=== PATIENT | female | born 1965 | race Caucasian/White ===

== ENCOUNTER 2017-11-12 12:54 | Inpatient (IN) | payer OTHER ==
[~2017-11-12 12:54] MED LIST: ROCURONIUM 50 MG INJ
[2017-11-12 14:22] LABS: ADD MAN DIFF? NO
[2017-11-12 14:27] LABS: BASOPHIL # 0.1 10^3/ul (0.0-0.1); EOSINOPHILS # 0.1 10^3/ul (0.0-0.5); EOSINOPHILS % 1.7 % (0.0-7.0); HEMOGLOBIN 12.1 g/dl (12.0-16.0); LYMPHOCYTES # 3.3 10^3/ul (0.8-2.9); LYMPHOCYTES % 39.9 % (15.0-51.0); MEAN CORPUSCULAR HEMOGLOBIN 29.9 pg (29.0-33.0); MEAN CORPUSCULAR HGB CONC 34.6 g/dl (32.0-37.0); MEAN CORPUSCULAR VOLUME 86.4 fl (82.0-101.0); MEAN PLATELET VOLUME 11.3 fl (7.4-10.4); MONOCYTE # 0.8 10^3/ul (0.3-0.9); MONOCYTES % 9.8 % (0.0-11.0); NEUTROPHIL # 3.9 10^3/ul (1.6-7.5); NEUTROPHILS % 47.4 % (39.0-77.0); PLATELET COUNT 261 10^3/UL (140-415); RED BLOOD COUNT 4.05 10^6/ul (4.20-5.40); RED CELL DISTRIBUTION WIDTH 12.2 % (11.5-14.5)
[2017-11-12 14:27] LABS: WHITE BLOOD COUNT 8.3 10^3/ul (4.8-10.8)
[2017-11-12 14:38] LABS: ADD UMIC YES; UR ASCORBIC ACID NEGATIVE (NEGATIVE); UR BILIRUBIN (Dip) NEGATIVE (NEGATIVE); UR BLOOD (Dip) 2+ mg/dL (NEGATIVE); UR CLARITY CLEAR (CLEAR); UR COLOR YELLOW (YELLOW); UR GLUCOSE (Dip) NEGATIVE (NEGATIVE); UR KETONES (Dip) TRACE mg/dL (NEGATIVE); UR LEUKOCYTE ESTERASE (Dip) NEGATIVE Leu/ul (NEGATIVE); UR MUCUS FEW /HPF (NONE SEEN); UR NITRITE (Dip) NEGATIVE (NEGATIVE); UR RBC 7 /HPF (0-5); UR SQUAMOUS EPITHELIAL CELL FEW /HPF (FEW); UR TOTAL PROTEIN (Dip) 1+ mg/dl (NEGATIVE); UR UROBILINOGEN (Dip) NEGATIVE (NEGATIVE); UR WBC 1 /HPF (0-5)
[2017-11-12 14:45] LABS: ALANINE AMINOTRANSFERASE 51 IU/L (13-69); ALBUMIN 3.9 g/dl (3.3-4.9); ALBUMIN/GLOBULIN RATIO 1.25; ALKALINE PHOSPHATASE 87 IU/L (42-121); ANION GAP 13 (8-16); ASPARTATE AMINO TRANSFERASE 41 IU/L (15-46); BILIRUBIN,INDIRECT 0.7 mg/dl (0-1.1); BILIRUBIN,TOTAL 0.7 mg/dl (0.2-1.3); CARBON DIOXIDE 30 mmol/L (21-31); CHLORIDE 107 mmol/L (97-110); GLUCOSE 90 mg/dl (70-220)
[2017-11-12 14:52] LABS: BLOOD UREA NITROGEN 14 mg/dl (7-20); CALCIUM 9.2 mg/dl (8.4-10.2); CREATININE 0.73 mg/dl (0.44-1.00); POTASSIUM 3.7 mmol/L (3.5-5.1); SODIUM 146 mmol/L (135-144)
[2017-11-12] MEDS ORDERED: ONDANSETRON 4 MG INJ IV ×2 (15:00→16:30)
[2017-11-12 15:26] LABS: INR 1.01; PROTIME 13.4 Sec (11.9-14.9)
[2017-11-12 15:27] LABS: PARTIAL THROMBOPLASTIN TIME 27.9 Sec (25.0-35.0)
[2017-11-12] MEDS ORDERED: FENTAnyl 50 MCG/ML VIAL (15:38)
[2017-11-12] MEDS: LIDOCAINE 1%/EPI 30 ML INJ (16:15)
[2017-11-12] MEDS ORDERED: MEPERIDINE 25 MG INJ IV (16:30)
[2017-11-12] MEDS ORDERED: FENTAnyl 50 MCG/ML VIAL IV ×3 (16:30)
[2017-11-12] MEDS ORDERED: DIPHENHYDRAMINE 50 MG INJ IV (16:30)
[2017-11-12] MEDS: GELATIN SIZE 100 SPONGE (16:30)
[2017-11-12] MEDS ORDERED: HYDROmorphONE (0.2 MG/ML) 10ML SYG IV (16:30)
[2017-11-12] MEDS ORDERED: METOCLOPRAMIDE 10 MG INJ IV (16:30)
[2017-11-12] MEDS: THROMBIN 5000 UNIT VIAL (16:31)
[2017-11-12] MEDS: POLYMYXIN/BACITRACIN 1L IRRIG (16:31)
[2017-11-12] MEDS ORDERED: THROMBIN 5000 UNIT VIAL (17:08)
[2017-11-12] MEDS ORDERED: GELATIN SIZE 100 SPONGE (17:08)
[2017-11-12] MEDS ORDERED: CEFAZOLIN 1 GM INJ (18:12)
[2017-11-12] MEDS ORDERED: SUCCINYLCHOLINE CHLORIDE 100 MG/5 ML SYG IV (18:12)
[2017-11-12] MEDS ORDERED: LIDOCAINE 100 MG SYRINGE (18:12)
[2017-11-12] MEDS ORDERED: ROCURONIUM 50 MG INJ (18:12)
[2017-11-12] MEDS ORDERED: SUGAMMADEX SODIUM 200 MG/2 ML VIAL IV (18:12)
[2017-11-12] MEDS ORDERED: PROPOFOL 20 ML (18:12)
[2017-11-12] MEDS: HYDROmorphONE (0.2 MG/ML) 10ML SYG IV ×4 (18:42→20:36)
[2017-11-12 19:06] LABS: ADD UMIC YES; UR ASCORBIC ACID NEGATIVE (NEGATIVE); UR BACTERIA FEW /HPF (NONE SEEN); UR BILIRUBIN (Dip) NEGATIVE (NEGATIVE); UR BLOOD (Dip) 1+ mg/dL (NEGATIVE); UR CLARITY CLEAR (CLEAR); UR COLOR STRAW (YELLOW); UR GLUCOSE (Dip) NEGATIVE (NEGATIVE); UR KETONES (Dip) NEGATIVE (NEGATIVE); UR LEUKOCYTE ESTERASE (Dip) NEGATIVE Leu/ul (NEGATIVE); UR NITRITE (Dip) NEGATIVE (NEGATIVE); UR RBC 3 /HPF (0-5); UR TOTAL PROTEIN (Dip) NEGATIVE (NEGATIVE); UR UROBILINOGEN (Dip) NEGATIVE (NEGATIVE); UR WBC 2 /HPF (0-5)
[2017-11-12] MEDS: morphine 2 MG INJ IV (21:30)
[2017-11-12] MEDS: CEFAZOLIN 1 GM/50 ML (PMX) 50 ML IVPB (21:57)
[2017-11-12] MEDS: DEXTROSE 5%-LR 1,000 ML IV ×2 (21:58→22:32)
[2017-11-12] MEDS: HYDROCODONE/APAP (10/325) TAB PO (23:34)
[2017-11-13] MEDS: morphine 2 MG INJ IV ×4 (03:22→21:13)
[2017-11-13] MEDS: CEFAZOLIN 1 GM/50 ML (PMX) 50 ML IVPB ×3 (05:24→21:09)
[2017-11-13] MEDS: HYDROCODONE/APAP (10/325) TAB PO ×2 (05:37→10:11)
[2017-11-13] MEDS: DEXTROSE 5%-LR 1,000 ML IV ×2 (08:46→15:49)
[2017-11-13] MEDS: CYCLOBENZAPRINE 10 MG TAB PO (08:53)
[2017-11-13] MEDS: PANTOPRAZOLE (EC) 40 MG TAB PO (10:11)
[2017-11-13] MEDS: ACETAMINOPHEN 325 MG TAB PO (18:28)
[2017-11-14 00:17] LABS: ADD UMIC YES; UR ASCORBIC ACID NEGATIVE (NEGATIVE); UR BILIRUBIN (Dip) NEGATIVE (NEGATIVE); UR BLOOD (Dip) 2+ mg/dL (NEGATIVE); UR CLARITY CLEAR (CLEAR); UR COLOR STRAW (YELLOW); UR GLUCOSE (Dip) NEGATIVE (NEGATIVE); UR KETONES (Dip) NEGATIVE (NEGATIVE); UR LEUKOCYTE ESTERASE (Dip) NEGATIVE Leu/ul (NEGATIVE); UR NITRITE (Dip) NEGATIVE (NEGATIVE); UR RBC 1 /HPF (0-5); UR SPECIFIC GRAVITY (Dip) 1.005 (1.003-1.030); UR TOTAL PROTEIN (Dip) NEGATIVE (NEGATIVE); UR UROBILINOGEN (Dip) NEGATIVE (NEGATIVE); UR WBC 0 /HPF (0-5)
[2017-11-14] MEDS: morphine 2 MG INJ IV ×2 (01:49→07:23)
[2017-11-14 04:53] LABS: ADD MAN DIFF? NO
[2017-11-14 04:59] LABS: ABNORMAL IP MESSAGE 1; BASOPHIL # 0.1 10^3/ul (0.0-0.1); BASOPHILS % 0.4 % (0.0-2.0); EOSINOPHILS % 0.1 % (0.0-7.0); HEMATOCRIT 33.5 % (37.0-47.0); HEMOGLOBIN 11.1 g/dl (12.0-16.0); LYMPHOCYTES # 2.6 10^3/ul (0.8-2.9); LYMPHOCYTES % 17.2 % (15.0-51.0); MEAN CORPUSCULAR HEMOGLOBIN 29.8 pg (29.0-33.0); MEAN CORPUSCULAR HGB CONC 33.1 g/dl (32.0-37.0); MEAN CORPUSCULAR VOLUME 89.8 fl (82.0-101.0); MEAN PLATELET VOLUME 11.4 fl (7.4-10.4); MONOCYTE # 1.7 10^3/ul (0.3-0.9); MONOCYTES % 11.5 % (0.0-11.0); NEUTROPHIL # 10.6 10^3/ul (1.6-7.5); NEUTROPHILS % 70.3 % (39.0-77.0); PLATELET COUNT 201 10^3/UL (140-415); RED BLOOD COUNT 3.73 10^6/ul (4.20-5.40)
[2017-11-14 04:59] LABS: WHITE BLOOD COUNT 15.1 10^3/ul (4.8-10.8)
[2017-11-14 05:19] LABS: ANION GAP 6 (8-16); BLOOD UREA NITROGEN 7 mg/dl (7-20); CALCIUM 8.3 mg/dl (8.4-10.2); CARBON DIOXIDE 34 mmol/L (21-31); CHLORIDE 103 mmol/L (97-110); CREATININE 0.77 mg/dl (0.44-1.00); GLUCOSE 119 mg/dl (70-220); POTASSIUM 3.7 mmol/L (3.5-5.1); SODIUM 139 mmol/L (135-144)
[2017-11-14 05:29] LABS: POSITIVE DIFF @See below
[2017-11-14] MEDS: PANTOPRAZOLE (EC) 40 MG TAB PO (05:29)
[2017-11-14] MEDS: ACETAMINOPHEN 325 MG TAB PO ×2 (05:29→20:00)
[2017-11-14] MEDS: HYDROmorphONE 0.5 MG/0.5 ML SYG IV ×4 (10:27→21:48)
[2017-11-14] MEDS: CYCLOBENZAPRINE 10 MG TAB PO ×2 (11:33→17:51)
[2017-11-14] MEDS: HYDROCODONE/APAP (10/325) TAB PO (12:40)
[2017-11-15] MEDS: CEFTRIAXONE 1 GM/50 ML (PMX) 50 ML IVPB ×2 (00:25→22:49)
[2017-11-15] MEDS: HYDROCODONE/APAP (10/325) TAB PO ×6 (00:28→22:35)
[2017-11-15 01:27] LABS: LACTIC ACID 0.9 mmol/L (0.5-2.0)
[2017-11-15] MEDS: VANCOMYCIN 1.25 GM in SOD CHLORIDE 0.9% 250 ML IVPB (01:30)
[2017-11-15 02:32] LABS: ADD UMIC YES; UR ASCORBIC ACID NEGATIVE (NEGATIVE); UR BACTERIA FEW /HPF (NONE SEEN); UR BILIRUBIN (Dip) NEGATIVE (NEGATIVE); UR BLOOD (Dip) 3+ mg/dL (NEGATIVE); UR CLARITY CLEAR (CLEAR); UR COLOR YELLOW (YELLOW); UR GLUCOSE (Dip) NEGATIVE (NEGATIVE); UR KETONES (Dip) NEGATIVE (NEGATIVE); UR LEUKOCYTE ESTERASE (Dip) NEGATIVE Leu/ul (NEGATIVE); UR MUCUS MODERATE /HPF (NONE SEEN); UR NITRITE (Dip) NEGATIVE (NEGATIVE); UR RBC 16 /HPF (0-5); UR SPECIFIC GRAVITY (Dip) 1.017 (1.003-1.030); UR TOTAL PROTEIN (Dip) NEGATIVE (NEGATIVE); UR UROBILINOGEN (Dip) NEGATIVE (NEGATIVE); UR WBC 5 /HPF (0-5)
[2017-11-15] MEDS: HYDROmorphONE 0.5 MG/0.5 ML SYG IV ×2 (03:13→08:16)
[2017-11-15 05:23] LABS: WHITE BLOOD COUNT 13.4 10^3/ul (4.8-10.8)
[2017-11-15 05:23] LABS: ADD MAN DIFF? NO; BASOPHIL # 0.1 10^3/ul (0.0-0.1); BASOPHILS % 0.6 % (0.0-2.0); EOSINOPHILS # 0.1 10^3/ul (0.0-0.5); HEMATOCRIT 33.8 % (37.0-47.0); HEMOGLOBIN 11.1 g/dl (12.0-16.0); LYMPHOCYTES % 22.6 % (15.0-51.0); MEAN CORPUSCULAR HEMOGLOBIN 29.8 pg (29.0-33.0); MEAN CORPUSCULAR HGB CONC 32.8 g/dl (32.0-37.0); MEAN CORPUSCULAR VOLUME 90.9 fl (82.0-101.0); MEAN PLATELET VOLUME 11.5 fl (7.4-10.4); MONOCYTE # 1.5 10^3/ul (0.3-0.9); MONOCYTES % 11.2 % (0.0-11.0); NEUTROPHIL # 8.5 10^3/ul (1.6-7.5); NEUTROPHILS % 63.7 % (39.0-77.0); PLATELET COUNT 218 10^3/UL (140-415); RED BLOOD COUNT 3.72 10^6/ul (4.20-5.40)
[2017-11-15] MEDS: ACETAMINOPHEN 325 MG TAB PO (05:31)
[2017-11-15] MEDS: PANTOPRAZOLE (EC) 40 MG TAB PO (05:31)
[2017-11-15 05:37] LABS: LACTIC ACID 0.9 mmol/L (0.5-2.0)
[2017-11-15 05:45] LABS: ANION GAP 11 (8-16); BLOOD UREA NITROGEN 8 mg/dl (7-20); CALCIUM 8.3 mg/dl (8.4-10.2); CARBON DIOXIDE 32 mmol/L (21-31); CHLORIDE 98 mmol/L (97-110); CREATININE 0.75 mg/dl (0.44-1.00); GLUCOSE 118 mg/dl (70-220); POTASSIUM 3.8 mmol/L (3.5-5.1); SODIUM 137 mmol/L (135-144)
[2017-11-15] MEDS: HYDROmorphONE 2 MG/ML SYG IV ×3 (11:40→21:00)
[2017-11-15] MEDS: CYCLOBENZAPRINE 10 MG TAB PO (14:32)
[2017-11-15] MEDS ORDERED: CEFTRIAXONE 1 GM/50 ML (PMX) 50 ML IVPB (21:00)
[2017-11-15] MEDS ORDERED: VANCOMYCIN IV PER PHARMACY XX (21:00)
[2017-11-15 22:18] LABS: ADD UMIC YES; UR ASCORBIC ACID 20 mg/dL (NEGATIVE); UR BILIRUBIN (Dip) NEGATIVE (NEGATIVE); UR BLOOD (Dip) 2+ mg/dL (NEGATIVE); UR CLARITY CLEAR (CLEAR); UR COLOR YELLOW (YELLOW); UR GLUCOSE (Dip) NEGATIVE (NEGATIVE); UR KETONES (Dip) NEGATIVE (NEGATIVE); UR LEUKOCYTE ESTERASE (Dip) NEGATIVE Leu/ul (NEGATIVE); UR MUCUS FEW /HPF (NONE SEEN); UR NITRITE (Dip) NEGATIVE (NEGATIVE); UR RBC 8 /HPF (0-5); UR SPECIFIC GRAVITY (Dip) 1.017 (1.003-1.030); UR TOTAL PROTEIN (Dip) NEGATIVE (NEGATIVE); UR UROBILINOGEN (Dip) NEGATIVE (NEGATIVE); UR WBC 3 /HPF (0-5)
[2017-11-15] MEDS: VANCOMYCIN 1.75 GM in SOD CHLORIDE 0.9% 500 ML IVPB (22:49)
[2017-11-16] MEDS: HYDROmorphONE 2 MG/ML SYG IV ×4 (02:22→19:45)
[2017-11-16 05:46] LABS: ADD MAN DIFF? NO
[2017-11-16 06:04] LABS: BASOPHIL # 0.1 10^3/ul (0.0-0.1); BASOPHILS % 0.4 % (0.0-2.0); EOSINOPHILS # 0.2 10^3/ul (0.0-0.5); EOSINOPHILS % 1.5 % (0.0-7.0); HEMOGLOBIN 10.8 g/dl (12.0-16.0); LYMPHOCYTES # 2.6 10^3/ul (0.8-2.9); MEAN CORPUSCULAR HEMOGLOBIN 29.6 pg (29.0-33.0); MEAN CORPUSCULAR HGB CONC 32.7 g/dl (32.0-37.0); MEAN CORPUSCULAR VOLUME 90.4 fl (82.0-101.0); MEAN PLATELET VOLUME 11.6 fl (7.4-10.4); MONOCYTES % 8.5 % (0.0-11.0); NEUTROPHIL # 7.4 10^3/ul (1.6-7.5); NEUTROPHILS % 65.8 % (39.0-77.0); PLATELET COUNT 280 10^3/UL (140-415); RED BLOOD COUNT 3.65 10^6/ul (4.20-5.40); RED CELL DISTRIBUTION WIDTH 11.8 % (11.5-14.5)
[2017-11-16 06:04] LABS: WHITE BLOOD COUNT 11.2 10^3/ul (4.8-10.8)
[2017-11-16] MEDS: HYDROCODONE/APAP (10/325) TAB PO ×4 (06:19→22:42)
[2017-11-16] MEDS: PANTOPRAZOLE (EC) 40 MG TAB PO (06:19)
[2017-11-16 06:20] LABS: LACTIC ACID 0.9 mmol/L (0.5-2.0)
[2017-11-16 06:44] LABS: ANION GAP 13 (8-16); BLOOD UREA NITROGEN 7 mg/dl (7-20); CALCIUM 8.1 mg/dl (8.4-10.2); CARBON DIOXIDE 34 mmol/L (21-31); CHLORIDE 93 mmol/L (97-110); CREATININE 0.79 mg/dl (0.44-1.00); GLUCOSE 138 mg/dl (70-220); POTASSIUM 3.8 mmol/L (3.5-5.1); SODIUM 136 mmol/L (135-144)
[2017-11-16] MEDS: CYCLOBENZAPRINE 10 MG TAB PO (08:07)
[2017-11-16] MEDS: VANCOMYCIN 1 GM 250 ML IVPB ×2 (09:29→23:58)
[2017-11-16] MEDS: CEFTRIAXONE 1 GM/50 ML (PMX) 50 ML IVPB (23:57)
[2017-11-17 05:19] LABS: ADD MAN DIFF? NO
[2017-11-17 05:21] LABS: BASOPHILS % 0.4 % (0.0-2.0); EOSINOPHILS # 0.3 10^3/ul (0.0-0.5); EOSINOPHILS % 3.1 % (0.0-7.0); HEMATOCRIT 28.9 % (37.0-47.0); HEMOGLOBIN 9.7 g/dl (12.0-16.0); LYMPHOCYTES # 2.4 10^3/ul (0.8-2.9); LYMPHOCYTES % 24.1 % (15.0-51.0); MEAN CORPUSCULAR HEMOGLOBIN 29.8 pg (29.0-33.0); MEAN CORPUSCULAR HGB CONC 33.6 g/dl (32.0-37.0); MEAN CORPUSCULAR VOLUME 88.9 fl (82.0-101.0); MEAN PLATELET VOLUME 11.2 fl (7.4-10.4); MONOCYTE # 1.1 10^3/ul (0.3-0.9); MONOCYTES % 11.1 % (0.0-11.0); NEUTROPHILS % 60.6 % (39.0-77.0); PLATELET COUNT 264 10^3/UL (140-415); RED BLOOD COUNT 3.25 10^6/ul (4.20-5.40); RED CELL DISTRIBUTION WIDTH 11.9 % (11.5-14.5)
[2017-11-17 05:54] LABS: ANION GAP 8 (8-16); BLOOD UREA NITROGEN 6 mg/dl (7-20); CALCIUM 8.4 mg/dl (8.4-10.2); CARBON DIOXIDE 36 mmol/L (21-31); CHLORIDE 97 mmol/L (97-110); CREATININE 0.62 mg/dl (0.44-1.00); GLUCOSE 124 mg/dl (70-220); POTASSIUM 3.4 mmol/L (3.5-5.1); SODIUM 138 mmol/L (135-144)
[2017-11-17] MEDS: PANTOPRAZOLE (EC) 40 MG TAB PO (06:02)
[2017-11-17] MEDS: HYDROmorphONE 2 MG/ML SYG IV ×3 (06:02→22:03)
[2017-11-17] MEDS: HYDROCODONE/APAP (10/325) TAB PO ×3 (07:53→20:01)
[2017-11-17] MEDS: CYCLOBENZAPRINE 10 MG TAB PO (11:22)
[2017-11-17 13:39] LABS: VANCOMYCIN,TROUGH 5.7 ug/ml (10.0-20.0)
[2017-11-17] MEDS: VANCOMYCIN 1 GM 250 ML IVPB (14:31)
[2017-11-17] MEDS: POTASSIUM CHLORIDE 20 MEQ POWDER FOR ORAL SOLN PO (20:01)
[2017-11-17] MEDS: VANCOMYCIN 1.25 GM in SOD CHLORIDE 0.9% 250 ML IVPB (22:03)
[2017-11-18] MEDS: HYDROCODONE/APAP (10/325) TAB PO ×4 (04:04→21:51)
[2017-11-18 05:16] LABS: ADD MAN DIFF? NO
[2017-11-18 05:24] LABS: WHITE BLOOD COUNT 9.1 10^3/ul (4.8-10.8)
[2017-11-18 05:24] LABS: BASOPHILS % 0.4 % (0.0-2.0); EOSINOPHILS # 0.4 10^3/ul (0.0-0.5); EOSINOPHILS % 3.9 % (0.0-7.0); HEMATOCRIT 30.1 % (37.0-47.0); HEMOGLOBIN 10.1 g/dl (12.0-16.0); LYMPHOCYTES # 1.9 10^3/ul (0.8-2.9); LYMPHOCYTES % 21.2 % (15.0-51.0); MEAN CORPUSCULAR HEMOGLOBIN 29.6 pg (29.0-33.0); MEAN CORPUSCULAR HGB CONC 33.6 g/dl (32.0-37.0); MEAN CORPUSCULAR VOLUME 88.3 fl (82.0-101.0); MEAN PLATELET VOLUME 11.2 fl (7.4-10.4); MONOCYTES % 10.5 % (0.0-11.0); NEUTROPHIL # 5.7 10^3/ul (1.6-7.5); PLATELET COUNT 291 10^3/UL (140-415); RED BLOOD COUNT 3.41 10^6/ul (4.20-5.40); RED CELL DISTRIBUTION WIDTH 11.8 % (11.5-14.5)
[2017-11-18] MEDS: HYDROmorphONE 2 MG/ML SYG IV ×5 (05:43→23:49)
[2017-11-18] MEDS: VANCOMYCIN 1.25 GM in SOD CHLORIDE 0.9% 250 ML IVPB ×3 (05:43→22:22)
[2017-11-18] MEDS: PANTOPRAZOLE (EC) 40 MG TAB PO (05:43)
[2017-11-18 05:54] LABS: ANION GAP 9 (8-16); BLOOD UREA NITROGEN 6 mg/dl (7-20); CALCIUM 8.6 mg/dl (8.4-10.2); CARBON DIOXIDE 35 mmol/L (21-31); CHLORIDE 97 mmol/L (97-110); GLUCOSE 112 mg/dl (70-220); POTASSIUM 3.8 mmol/L (3.5-5.1); SODIUM 137 mmol/L (135-144)
[2017-11-18] MEDS: CYCLOBENZAPRINE 10 MG TAB PO (14:03)
[2017-11-18 22:08] LABS: VANCOMYCIN,TROUGH 13.5 ug/ml (10.0-20.0)
[2017-11-19] MEDS: HYDROmorphONE 2 MG/ML SYG IV ×4 (03:08→17:07)
[2017-11-19 06:03] LABS: ADD MAN DIFF? NO
[2017-11-19 06:07] LABS: BASOPHIL # 0.1 10^3/ul (0.0-0.1); BASOPHILS % 0.7 % (0.0-2.0); EOSINOPHILS # 0.4 10^3/ul (0.0-0.5); EOSINOPHILS % 5.2 % (0.0-7.0); HEMATOCRIT 29.8 % (37.0-47.0); HEMOGLOBIN 9.8 g/dl (12.0-16.0); LYMPHOCYTES # 1.5 10^3/ul (0.8-2.9); LYMPHOCYTES % 21.6 % (15.0-51.0); MEAN CORPUSCULAR HEMOGLOBIN 29.4 pg (29.0-33.0); MEAN CORPUSCULAR HGB CONC 32.9 g/dl (32.0-37.0); MEAN CORPUSCULAR VOLUME 89.5 fl (82.0-101.0); MEAN PLATELET VOLUME 11.3 fl (7.4-10.4); MONOCYTE # 0.7 10^3/ul (0.3-0.9); MONOCYTES % 10.6 % (0.0-11.0); NEUTROPHIL # 4.1 10^3/ul (1.6-7.5); NEUTROPHILS % 60.7 % (39.0-77.0); PLATELET COUNT 323 10^3/UL (140-415); RED BLOOD COUNT 3.33 10^6/ul (4.20-5.40)
[2017-11-19 06:07] LABS: WHITE BLOOD COUNT 6.7 10^3/ul (4.8-10.8)
[2017-11-19 06:27] LABS: ANION GAP 13 (8-16); BLOOD UREA NITROGEN 7 mg/dl (7-20); CALCIUM 8.6 mg/dl (8.4-10.2); CARBON DIOXIDE 32 mmol/L (21-31); CHLORIDE 96 mmol/L (97-110); CREATININE 0.65 mg/dl (0.44-1.00); GLUCOSE 112 mg/dl (70-220); POTASSIUM 3.5 mmol/L (3.5-5.1); SODIUM 137 mmol/L (135-144)
[2017-11-19] MEDS: VANCOMYCIN 1.25 GM in SOD CHLORIDE 0.9% 250 ML IVPB ×2 (06:45→13:13)
[2017-11-19] MEDS: PANTOPRAZOLE (EC) 40 MG TAB PO (06:45)
[2017-11-19] MEDS: HYDROCODONE/APAP (10/325) TAB PO ×4 (09:23→22:36)
[2017-11-19] MEDS: CYCLOBENZAPRINE 10 MG TAB PO (09:23)
[2017-11-20] MEDS: HYDROCODONE/APAP (10/325) TAB PO ×3 (02:43→13:11)
[2017-11-20] MEDS: PANTOPRAZOLE (EC) 40 MG TAB PO (05:57)
[2017-11-20] MEDS ORDERED: MAGNESIUM HYDROXIDE 30ML CUP PO (07:00)
[2017-11-20] MEDS: SENNA TAB PO (09:47)
[2017-11-20] MEDS: CYCLOBENZAPRINE 10 MG TAB PO (09:48)
== END 2017-11-20 17:30 | disposition home or self-care (01) | DRG 459 ==
LOC: REC 12:54 → MS1 21:18
PROC: 0SG0071 Fusion of Lumbar Vertebral Joint with Autologous Tissue Substitute, Posterior Approach, Posterior Column, Open Approach (ICD-10-PCS; principal; 2017-11-12 15:00)
PROC: 0SG3071 Fusion of Lumbosacral Joint with Autologous Tissue Substitute, Posterior Approach, Posterior Column, Open Approach (ICD-10-PCS; 2017-11-12 15:00)
PROC: 01NB0ZZ Release Lumbar Nerve, Open Approach (ICD-10-PCS; 2017-11-12 15:00)
DX: M47.26 Other spondylosis with radiculopathy, lumbar region (principal); A41.9 Sepsis, unspecified organism; M47.27 Other spondylosis with radiculopathy, lumbosacral region; M43.16 Spondylolisthesis, lumbar region; M43.17 Spondylolisthesis, lumbosacral region; M48.061 Spinal stenosis, lumbar region without neurogenic claudication; M48.07 Spinal stenosis, lumbosacral region; M79.89 Other specified soft tissue disorders; E78.5 Hyperlipidemia, unspecified; E66.01 Morbid (severe) obesity due to excess calories; I10 Essential (primary) hypertension; I80.8 Phlebitis and thrombophlebitis of other sites; K21.9 Gastro-esophageal reflux disease without esophagitis; R26.2 Difficulty in walking, not elsewhere classified; Z68.39 Body mass index [BMI] 39.0-39.9, adult
CPT/HCPCS: 71045; 72114; 80048; 80053; 80202; 81001; 83605; 84703; 85025; 85610; 85730; 86850; 86900; 86901; 87040; 87070; 87075; 87086; 93005; 93971; 97116; 97163; 97530

== ENCOUNTER 2019-01-26 09:40 | Inpatient (IN) | payer OTHER ==
[2019-01-26] MEDS ORDERED: PROPOFOL 20 ML (11:45)
[2019-01-26] MEDS ORDERED: LIDOCAINE 100 MG SYRINGE (11:45)
[2019-01-26] MEDS ORDERED: FENTAnyl 50 MCG/ML VIAL (11:45)
[2019-01-26] MEDS ORDERED: CEFAZOLIN 1 GM INJ (11:45)
[2019-01-26] MEDS ORDERED: SUCCINYLCHOLINE CHLORIDE 100 MG/5 ML SYG IV (11:45)
[2019-01-26] MEDS ORDERED: ROCURONIUM 50 MG INJ (11:45)
[2019-01-26] MEDS ORDERED: METOCLOPRAMIDE 10 MG INJ IV ×2 (12:00→14:30)
[2019-01-26] MEDS ORDERED: DIPHENHYDRAMINE 50 MG INJ IV ×2 (12:00→14:30)
[2019-01-26] MEDS ORDERED: HYDROmorphONE 1 MG/5 ML IV SYRINGE IV ×3 (12:00)
[2019-01-26] MEDS ORDERED: FENTAnyl 50 MCG/ML VIAL IV ×5 (12:00→14:30)
[2019-01-26] MEDS ORDERED: ONDANSETRON 4 MG INJ IV ×3 (12:00→14:30)
[2019-01-26] MEDS ORDERED: ALBUTEROL 0.083% (NEB) 2.5 MG/3 ML AMP HHN ×2 (12:00→14:30)
[2019-01-26] MEDS ORDERED: SUGAMMADEX SODIUM 200 MG/2 ML VIAL IV ×2 (13:40→14:03)
[2019-01-26] MEDS: CEFAZOLIN 1 GM/50 ML (PMX) 50 ML IVPB ×2 (14:00→22:29)
[2019-01-26] MEDS: GELATIN SIZE 100 SPONGE (14:27)
[2019-01-26] MEDS: LIDOCAINE 1%/EPI 30 ML INJ (14:29)
[2019-01-26] MEDS ORDERED: MEPERIDINE 25 MG INJ IV (14:30)
[2019-01-26] MEDS: POLYMYXIN/BACITRACIN 1L IRRIG (14:30)
[2019-01-26] MEDS ORDERED: HYDROmorphONE 0.5 MG/0.5 ML SYG IV (14:30)
[2019-01-26] MEDS: HYDROmorphONE 0.5 MG/0.5 ML SYG IV ×2 (14:30→14:41)
[2019-01-26] MEDS: THROMBIN 5000 UNIT (RECOTHROM) VIAL (14:31)
[2019-01-26] MEDS: MEPERIDINE 25 MG INJ IV (15:08)
[2019-01-26] MEDS: DEXTROSE 5%-LR 1,000 ML IV (15:18)
[2019-01-26] MEDS: morphine 4 MG/ML VIAL IV ×2 (15:53→19:26)
[2019-01-26] MEDS: niCARdipine 50 MG in SOD CHLORIDE 0.9% 480 ML IV ×2 (16:12→20:59)
[2019-01-26] MEDS: DEXAMETHASONE 4 MG/ML 1 ML INJ IV ×2 (17:45→22:32)
[2019-01-26] MEDS: hydrALAzine 20 MG INJ IV (17:46)
[2019-01-26] MEDS: HYDROmorphONE 1 MG/ML SYG IV (22:32)
[2019-01-27] MEDS: HYDROmorphONE 1 MG/ML SYG IV ×10 (01:08→22:34)
[2019-01-27] MEDS: DEXTROSE 5%-LR 1,000 ML IV ×4 (01:13→22:32)
[2019-01-27] MEDS: niCARdipine 50 MG in SOD CHLORIDE 0.9% 480 ML IV ×5 (02:29→22:44)
[2019-01-27 05:14] LABS: ADD MAN DIFF? NO
[2019-01-27 05:17] LABS: BASOPHILS % 0.3 % (0.0-2.0); HEMATOCRIT 39.7 % (37.0-47.0); HEMOGLOBIN 12.9 g/dl (12.0-16.0); LYMPHOCYTES # 1.2 10^3/ul (0.8-2.9); LYMPHOCYTES % 9.1 % (15.0-51.0); MEAN CORPUSCULAR HEMOGLOBIN 29.5 pg (29.0-33.0); MEAN CORPUSCULAR HGB CONC 32.5 g/dl (32.0-37.0); MEAN CORPUSCULAR VOLUME 90.8 fl (82.0-101.0); MEAN PLATELET VOLUME 11.3 fl (7.4-10.4); MONOCYTE # 0.3 10^3/ul (0.3-0.9); NEUTROPHIL # 11.6 10^3/ul (1.6-7.5); NEUTROPHILS % 87.8 % (39.0-77.0); PLATELET COUNT 253 10^3/UL (140-415); RED BLOOD COUNT 4.37 10^6/ul (4.20-5.40); RED CELL DISTRIBUTION WIDTH 12.2 % (11.5-14.5)
[2019-01-27 05:17] LABS: WHITE BLOOD COUNT 13.2 10^3/ul (4.8-10.8)
[2019-01-27 05:38] LABS: ANION GAP 6 (5-13); BLOOD UREA NITROGEN 12 mg/dl (7-20); CALCIUM 8.9 mg/dl (8.4-10.2); CARBON DIOXIDE 30 mmol/L (21-31); CHLORIDE 105 mmol/L (97-110); CREATININE 0.66 mg/dl (0.44-1.00); Estimated GFR > 60 mL/min (>60); GLUCOSE 196 mg/dl (70-220); POTASSIUM 4.1 mmol/L (3.5-5.1); SODIUM 141 mmol/L (135-144)
[2019-01-27] MEDS: DEXAMETHASONE 4 MG/ML 1 ML INJ IV ×3 (05:39→18:11)
[2019-01-27] MEDS: PANTOPRAZOLE (EC) 40 MG TAB PO (05:39)
[2019-01-27] MEDS: CEFAZOLIN 1 GM/50 ML (PMX) 50 ML IVPB ×2 (05:39→13:22)
[2019-01-27] MEDS: HYDROCODONE/APAP (7.5/325) TAB PO (05:40)
[2019-01-27] MEDS: LOSARTAN 25 MG TAB PO (10:20)
[2019-01-27] MEDS: NIFEdipine (XL) 60 MG TAB PO ×2 (10:20→20:19)
[2019-01-27] MEDS: CITALOPRAM 20 MG TAB PO (10:21)
[2019-01-27] MEDS: HYDROCHLOROTHIAZIDE 25 MG TAB PO (10:21)
[2019-01-27] MEDS: TOPIRAMATE 25 MG TAB PO ×2 (10:21→20:19)
[2019-01-27] MEDS: GABAPENTIN 300 MG CAP PO ×2 (10:25→20:19)
[2019-01-27] MEDS: hydrALAzine 20 MG INJ IV (11:36)
[2019-01-27] MEDS ORDERED: ACETAMINOPHEN 1000MG/100ML IV 100 ML IVPB (18:00)
[2019-01-28] MEDS: HYDROmorphONE 1 MG/ML SYG IV ×6 (00:16→14:45)
[2019-01-28] MEDS: niCARdipine 50 MG in SOD CHLORIDE 0.9% 480 ML IV ×2 (02:23→06:21)
[2019-01-28] MEDS: PANTOPRAZOLE (EC) 40 MG TAB PO (05:18)
[2019-01-28 05:23] LABS: ADD MAN DIFF? NO
[2019-01-28 05:33] LABS: WHITE BLOOD COUNT 20.1 10^3/ul (4.8-10.8)
[2019-01-28 05:33] LABS: BASOPHILS % 0.2 % (0.0-2.0); HEMATOCRIT 36.4 % (37.0-47.0); HEMOGLOBIN 11.8 g/dl (12.0-16.0); LYMPHOCYTES # 1.6 10^3/ul (0.8-2.9); LYMPHOCYTES % 7.9 % (15.0-51.0); MEAN CORPUSCULAR HEMOGLOBIN 29.7 pg (29.0-33.0); MEAN CORPUSCULAR HGB CONC 32.4 g/dl (32.0-37.0); MEAN CORPUSCULAR VOLUME 91.7 fl (82.0-101.0); MEAN PLATELET VOLUME 11.4 fl (7.4-10.4); MONOCYTES % 4.8 % (0.0-11.0); NEUTROPHIL # 17.3 10^3/ul (1.6-7.5); NEUTROPHILS % 85.8 % (39.0-77.0); PLATELET COUNT 230 10^3/UL (140-415); RED BLOOD COUNT 3.97 10^6/ul (4.20-5.40)
[2019-01-28 06:11] LABS: ANION GAP 6 (5-13); BLOOD UREA NITROGEN 11 mg/dl (7-20); CALCIUM 8.6 mg/dl (8.4-10.2); CARBON DIOXIDE 31 mmol/L (21-31); CHLORIDE 101 mmol/L (97-110); CREATININE 0.58 mg/dl (0.44-1.00); Estimated GFR > 60 mL/min (>60); GLUCOSE 198 mg/dl (70-220); POTASSIUM 3.8 mmol/L (3.5-5.1); SODIUM 138 mmol/L (135-144)
[2019-01-28] MEDS: DEXTROSE 5%-LR 1,000 ML IV ×2 (10:29→17:53)
[2019-01-28] MEDS: CITALOPRAM 20 MG TAB PO (10:31)
[2019-01-28] MEDS: TOPIRAMATE 25 MG TAB PO ×2 (10:31→21:06)
[2019-01-28] MEDS: GABAPENTIN 300 MG CAP PO ×2 (10:31→21:07)
[2019-01-28] MEDS: NIFEdipine (XL) 60 MG TAB PO ×2 (10:32→21:06)
[2019-01-28] MEDS: LOSARTAN 25 MG TAB PO (10:32)
[2019-01-28] MEDS: HYDROCHLOROTHIAZIDE 25 MG TAB PO (10:32)
[2019-01-28] MEDS: HYDROCODONE/APAP (5/325) TAB PO ×3 (13:24→21:14)
[2019-01-28] MEDS: DEXAMETHASONE 4 MG/ML 1 ML INJ IV (17:55)
[2019-01-29] MEDS: DEXAMETHASONE 4 MG/ML 1 ML INJ IV ×4 (00:16→18:03)
[2019-01-29] MEDS: DEXTROSE 5%-LR 1,000 ML IV (02:35)
[2019-01-29 05:32] LABS: ADD MAN DIFF? NO
[2019-01-29 05:34] LABS: WHITE BLOOD COUNT 17.7 10^3/ul (4.8-10.8)
[2019-01-29 05:34] LABS: BASOPHILS % 0.1 % (0.0-2.0); HEMATOCRIT 38.9 % (37.0-47.0); HEMOGLOBIN 12.9 g/dl (12.0-16.0); LYMPHOCYTES # 1.6 10^3/ul (0.8-2.9); LYMPHOCYTES % 9.1 % (15.0-51.0); MEAN CORPUSCULAR HEMOGLOBIN 29.8 pg (29.0-33.0); MEAN CORPUSCULAR HGB CONC 33.2 g/dl (32.0-37.0); MEAN CORPUSCULAR VOLUME 89.8 fl (82.0-101.0); MEAN PLATELET VOLUME 11.6 fl (7.4-10.4); MONOCYTE # 0.7 10^3/ul (0.3-0.9); MONOCYTES % 3.8 % (0.0-11.0); NEUTROPHIL # 15.1 10^3/ul (1.6-7.5); NEUTROPHILS % 85.4 % (39.0-77.0); PLATELET COUNT 270 10^3/UL (140-415); RED BLOOD COUNT 4.33 10^6/ul (4.20-5.40); RED CELL DISTRIBUTION WIDTH 11.9 % (11.5-14.5)
[2019-01-29 05:47] LABS: ALANINE AMINOTRANSFERASE 38 IU/L (13-69); ALBUMIN 3.5 g/dl (3.3-4.9); ALBUMIN/GLOBULIN RATIO 1.06; ALKALINE PHOSPHATASE 79 IU/L (42-121); ANION GAP 6 (5-13); ASPARTATE AMINO TRANSFERASE 31 IU/L (15-46); BILIRUBIN,INDIRECT 0.5 mg/dl (0-1.1); BILIRUBIN,TOTAL 0.5 mg/dl (0.2-1.3); BLOOD UREA NITROGEN 11 mg/dl (7-20); CALCIUM 8.8 mg/dl (8.4-10.2); CARBON DIOXIDE 33 mmol/L (21-31); CHLORIDE 99 mmol/L (97-110); CREATININE 0.65 mg/dl (0.44-1.00); Estimated GFR > 60 mL/min (>60); GLUCOSE 186 mg/dl (70-220); POTASSIUM 3.1 mmol/L (3.5-5.1); SODIUM 138 mmol/L (135-144); TOTAL PROTEIN 6.8 g/dl (6.1-8.1)
[2019-01-29] MEDS: PANTOPRAZOLE (EC) 40 MG TAB PO (06:06)
[2019-01-29] MEDS: HYDROCODONE/APAP (5/325) TAB PO ×3 (06:06→20:18)
[2019-01-29] MEDS: GABAPENTIN 300 MG CAP PO ×2 (09:31→20:15)
[2019-01-29] MEDS: CITALOPRAM 20 MG TAB PO (09:31)
[2019-01-29] MEDS: HYDROCHLOROTHIAZIDE 25 MG TAB PO (09:32)
[2019-01-29] MEDS: LOSARTAN 25 MG TAB PO (09:32)
[2019-01-29] MEDS: NIFEdipine (XL) 60 MG TAB PO ×2 (09:33→20:18)
[2019-01-29] MEDS: TOPIRAMATE 25 MG TAB PO ×2 (09:33→20:15)
[2019-01-29] MEDS: POTASSIUM CHLORIDE (SR) 20 MEQ TAB PO (13:34)
[2019-01-29] MEDS: DEXAMETHASONE 4 MG TAB PO (21:16)
[2019-01-29] MEDS: HYDROmorphONE 1 MG/ML SYG IV (21:22)
[2019-01-30] MEDS: HYDROmorphONE 1 MG/ML SYG IV ×2 (04:45→18:18)
[2019-01-30 04:48] LABS: ADD MAN DIFF? NO
[2019-01-30 05:02] LABS: BASOPHILS % 0.2 % (0.0-2.0); HEMATOCRIT 42.5 % (37.0-47.0); HEMOGLOBIN 14.5 g/dl (12.0-16.0); LYMPHOCYTES # 1.9 10^3/ul (0.8-2.9); MEAN CORPUSCULAR HEMOGLOBIN 29.9 pg (29.0-33.0); MEAN CORPUSCULAR HGB CONC 34.1 g/dl (32.0-37.0); MEAN CORPUSCULAR VOLUME 87.6 fl (82.0-101.0); MEAN PLATELET VOLUME 11.3 fl (7.4-10.4); NEUTROPHIL # 12.6 10^3/ul (1.6-7.5); PLATELET COUNT 317 10^3/UL (140-415); RED BLOOD COUNT 4.85 10^6/ul (4.20-5.40); RED CELL DISTRIBUTION WIDTH 11.8 % (11.5-14.5)
[2019-01-30 05:02] LABS: WHITE BLOOD COUNT 15.8 10^3/ul (4.8-10.8)
[2019-01-30 05:10] LABS: ANION GAP 8 (5-13); BLOOD UREA NITROGEN 14 mg/dl (7-20); CALCIUM 8.9 mg/dl (8.4-10.2); CARBON DIOXIDE 31 mmol/L (21-31); CHLORIDE 99 mmol/L (97-110); CREATININE 0.69 mg/dl (0.44-1.00); Estimated GFR > 60 mL/min (>60); GLUCOSE 168 mg/dl (70-220); POTASSIUM 3.1 mmol/L (3.5-5.1); SODIUM 138 mmol/L (135-144)
[2019-01-30] MEDS: PANTOPRAZOLE (EC) 40 MG TAB PO (07:33)
[2019-01-30] MEDS: DEXAMETHASONE 4 MG TAB PO ×2 (09:50→21:01)
[2019-01-30] MEDS: GABAPENTIN 300 MG CAP PO ×2 (09:50→21:01)
[2019-01-30] MEDS: NIFEdipine (XL) 60 MG TAB PO ×2 (09:51→21:02)
[2019-01-30] MEDS: TOPIRAMATE 25 MG TAB PO ×2 (09:51→21:01)
[2019-01-30] MEDS: HYDROCHLOROTHIAZIDE 25 MG TAB PO (09:51)
[2019-01-30] MEDS: CITALOPRAM 20 MG TAB PO (09:55)
[2019-01-30] MEDS: POTASSIUM CHLORIDE (SR) 20 MEQ TAB PO (09:55)
[2019-01-30] MEDS: LOSARTAN 25 MG TAB PO (09:56)
[2019-01-30] MEDS: HYDROCODONE/APAP (7.5/325) TAB PO (21:01)
[2019-01-31] MEDS: PANTOPRAZOLE (EC) 40 MG TAB PO (05:55)
[2019-01-31] MEDS: GABAPENTIN 300 MG CAP PO ×2 (08:22→20:57)
[2019-01-31] MEDS: NIFEdipine (XL) 60 MG TAB PO ×2 (08:22→20:57)
[2019-01-31] MEDS: LOSARTAN 25 MG TAB PO (08:22)
[2019-01-31] MEDS: CITALOPRAM 20 MG TAB PO (08:22)
[2019-01-31] MEDS: DEXAMETHASONE 4 MG TAB PO ×2 (08:22→20:57)
[2019-01-31] MEDS: TOPIRAMATE 25 MG TAB PO ×2 (08:22→20:57)
[2019-01-31] MEDS: HYDROCHLOROTHIAZIDE 25 MG TAB PO (08:22)
[2019-01-31] MEDS: HYDROmorphONE 1 MG/ML SYG IV ×2 (08:23→14:03)
[2019-02-01] MEDS: HYDROmorphONE 1 MG/ML SYG IV (01:30)
[2019-02-01 05:03] LABS: ADD MAN DIFF? NO
[2019-02-01 05:07] LABS: BASOPHILS % 0.2 % (0.0-2.0); HEMATOCRIT 47.5 % (37.0-47.0); HEMOGLOBIN 15.9 g/dl (12.0-16.0); LYMPHOCYTES % 13.8 % (15.0-51.0); MEAN CORPUSCULAR HEMOGLOBIN 29.1 pg (29.0-33.0); MEAN CORPUSCULAR HGB CONC 33.5 g/dl (32.0-37.0); MEAN CORPUSCULAR VOLUME 86.8 fl (82.0-101.0); MONOCYTE # 1.3 10^3/ul (0.3-0.9); MONOCYTES % 8.7 % (0.0-11.0); NEUTROPHIL # 11.1 10^3/ul (1.6-7.5); NEUTROPHILS % 75.4 % (39.0-77.0); PLATELET COUNT 361 10^3/UL (140-415); RED BLOOD COUNT 5.47 10^6/ul (4.20-5.40); RED CELL DISTRIBUTION WIDTH 11.9 % (11.5-14.5)
[2019-02-01 05:07] LABS: WHITE BLOOD COUNT 14.8 10^3/ul (4.8-10.8)
[2019-02-01 05:22] LABS: ANION GAP 7 (5-13); BLOOD UREA NITROGEN 22 mg/dl (7-20); CALCIUM 8.8 mg/dl (8.4-10.2); CARBON DIOXIDE 34 mmol/L (21-31); CHLORIDE 95 mmol/L (97-110); CREATININE 0.96 mg/dl (0.44-1.00); Estimated GFR > 60 mL/min (>60); GLUCOSE 149 mg/dl (70-220); POTASSIUM 3.3 mmol/L (3.5-5.1); SODIUM 136 mmol/L (135-144)
[2019-02-01] MEDS: PANTOPRAZOLE (EC) 40 MG TAB PO (05:31)
[2019-02-01] MEDS: HYDROCODONE/APAP (7.5/325) TAB PO (08:09)
[2019-02-01] MEDS: CITALOPRAM 20 MG TAB PO (10:11)
[2019-02-01] MEDS: HYDROCHLOROTHIAZIDE 25 MG TAB PO (10:12)
[2019-02-01] MEDS: TOPIRAMATE 25 MG TAB PO (10:12)
[2019-02-01] MEDS: LOSARTAN 25 MG TAB PO (10:12)
[2019-02-01] MEDS: NIFEdipine (XL) 60 MG TAB PO (10:12)
[2019-02-01] MEDS: GABAPENTIN 300 MG CAP PO (10:12)
[2019-02-01] MEDS: POTASSIUM CHLORIDE 20 MEQ POWDER FOR ORAL SOLN PO (17:21)
== END 2019-02-01 18:10 | disposition home health service (06) | DRG 472 ==
LOC: REC 09:40 → MS1 01-28 17:14 → ICU 14:20
PROC: 0RG10A0 Fusion of Cervical Vertebral Joint with Interbody Fusion Device, Anterior Approach, Anterior Column, Open Approach (ICD-10-PCS; principal; 2019-01-26 11:30)
PROC: 0RB30ZZ Excision of Cervical Vertebral Disc, Open Approach (ICD-10-PCS; 2019-01-26 11:30)
DX: M48.02 Spinal stenosis, cervical region (principal); M47.12 Other spondylosis with myelopathy, cervical region; Z68.41 Body mass index [BMI] 40.0-44.9, adult; M47.13 Other spondylosis with myelopathy, cervicothoracic region; M62.81 Muscle weakness (generalized); E66.01 Morbid (severe) obesity due to excess calories; M47.22 Other spondylosis with radiculopathy, cervical region; D72.829 Elevated white blood cell count, unspecified; G89.29 Other chronic pain; M47.23 Other spondylosis with radiculopathy, cervicothoracic region; I10 Essential (primary) hypertension; E78.5 Hyperlipidemia, unspecified; E78.00 Pure hypercholesterolemia, unspecified
CPT/HCPCS: 70450; 72050; 72141; 80048; 80053; 84703; 85025; 86850; 86900; 86901; 87081; 88304; 93970; 97116; 97162; 97530